=== PATIENT | male | born 1955 | race Caucasian/White ===

== ENCOUNTER 2018-02-11 17:39 | Outpatient (REF) | payer OTHER, SELFPAY ==
[2018-02-11 21:03] LABS: Anion Gap 10.3 mmol/L (3-11); BUN 25 mg/dL (7-18); CO2 24.7 mmol/L (21.0-32.0); CREATININE 1.18 mg/dL (0.70-1.30); Calcium 8.9 mg/dL (8.5-10.1); Chloride 104 mmol/L (98-107); Cholesterol 173 mg/dL (50-200); Glucose 88 mg/dL (70-100); HDL Cholesterol 74 mg/dL (40-60); LDL CHOLESTEROL 88 mg/dL (<100); Potassium 4.1 mmol/L (3.5-5.1); Sodium 139 mmol/L (136-145); Triglyceride 72 mg/dL (30-150)
[2018-02-15 11:11] LABS: PSA, Screening 0.4 ng/ml (0-4.5)
== END 2018-02-11 17:40 ==
LOC: NCHCN 17:39
PROVIDERS: PCP Specialist/Technologist Athletic Trainer; Visit Provider Specialist/Technologist Athletic Trainer
DX: Z00.00 Encounter for general adult medical examination without abnormal findings (principal); E78.5 Hyperlipidemia, unspecified; I10 Essential (primary) hypertension; Z12.5 Encounter for screening for malignant neoplasm of prostate
CPT/HCPCS: 80048; 80061; 83721; 84153

== ENCOUNTER 2018-05-15 07:17 | Emergency (ER) | payer OTHER, SELFPAY ==
[2018-05-15 07:21] VITALS: BP 132/64; PULSE 78; RESP 15; TEMP 36.6; O2SAT 99
--- NOTE | 2018-05-15 07:41 | W.ED.GENAD ---
Discharge Plan Disposition Patient Disposition: HOME Condition: Good Discharge Details Chief Complaint: Nk/Back Pain Clinical Impression: Lumbago Primary Care Provider: Tin Matthews ED Provider: Jason Hassan Home Meds and New Rx's Prescriptions: New acetaminophen [Mapap Extra Strength] 500 MG tablet 1,000 mg PO Q6H 5 Days Qty: 60 RF: 0 lidocaine 5 % adhesive patch,medicated 1 patch TP DAILY Qty: 5 RF: 0 ibuprofen [Motrin IB] 200 MG tablet 600 mg PO Q6H 5 Days Qty: 60 RF: 0 cyclobenzaprine 7.5 mg tablet 7.5 mg PO TID Qty: 21 RF: 0 No Action atorvastatin [Lipitor] 40 MG tablet 40 mg PO QPM RF: 0 aspirin [Aspir-81] 81 MG tablet,delayed release (DR/EC) 81 mg PO DAILY RF: 0 lisinopril 10 MG tablet 10 mg PO DAILY RF: 0 Discharge Instructions Instructions: Low Back Strain (ED) Additional Instructions: Please follow-up as soon as possible with your primary care provider for repeat assessment and outpatient MRI. If you notice any worsening of your symptoms, or any new symptoms such as loss of control of your bowels or bladder, numbness or tingling over your rectum, groin region, worsening of your back pain, weakness of your lower extremities, vomiting, diarrhea, fever, chills, shortness of breath, chest pain, numbness, weakness, or fainting , please return immediately to the emergency department for reevaluation. Please follow up with your primary care provider as soon as possible for reassessment and reevaluation. As always, it was a pleasure participating in your medical care today. Referrals: Tin Matthews [Primary Care Provider] - Medical Decision Making <Brian Singh MD - Last Filed: 05/15/18 07:58> Patient with low back pain for a couple of weeks with radiation of pain down both legs left greater than right. Prior history of back problems and sciatica also in the distant past. No neurologic complaints. No bladder or bowel dysfunction, normal strength, symmetrical reflexes, no sensory deficit. Abdomen is benign. He does have tenderness over the L3 area with palpation. He is already taking nonsteroidals this morning. We will add Flexeril. Will get CT scan of the lumbar spine. Patient care turned over to Dr. Hassan who will follow up on CT results and reevaluate the patient's pain level after treatment. <Jason Hassan, DO - Last Filed: 05/15/18 09:19> The case was signed out to be my my colleague Dr. Singh. We are pending imaging results at that time. Patient presents with 2 weeks of back pain. It occurred while putting on chains for his truck. Since then he has had gradual chronic back pain in his lower lumbar spine with radiation down his legs, worse with movement, improved by NSAIDs. He has no red flags of bowel or bladder incontinence, saddle anesthesia, or weakness of his lower extremities. Patient was given a Lidoderm patch here, Flexeril, and Tylenol, and here in the ED he has had a notable improvement of his symptoms. On my repeat examination he demonstrates mainly paraspinal tenderness, with minimal midline tenderness. The more severe pain is clearly muscular over the paraspinal muscles, worse on the left. He demonstrates normal reflexes normal sensation, normal rectal tone, normal perirectal sensation and a post void residual far less than 100. CT scan results demonstrate no acute fracture, and possible disc extrusion at L2/L3 versus artifact. Correlate with MRI if indicated with the patient's clear muscular component, as well as his lack of neurologic red flags, significant urinary retention, decreased rectal tone or sensation, and in the setting of normal reflexes normal sensation normal strength and improvement of his symptoms with NSAIDs and Lidoderm patch, his current clinical symptomatology at this time is clinically consistent with a musculoskeletal component, and clinically inconsistent with cauda equina syndrome requiring immediate surgical intervention. However I do feel that the patient would benefit from outpatient MRI on a nonemergent basis for further follow-up and differentiation of his chronic back pathology. I had a long discussion with the patient and his regarding the importance of medication, avoiding any heavy lifting, and long discussion regarding red flags for symptom changes that would merit a prompt return to the emergency department. We will also contact his PCP to set up close follow-up for outpatient MRI. I have extensively reviewed the treatment plan and discharge instructions with the patient and their family. I have addressed all patient concerns at this time. The patient and family was made aware of what symptoms to monitor for that would warrant a return to the emergency department. Discussed the plan with the patient and family, they demonstrate verbal understanding and agreement with our assessment and plan at this time. Focused repeat physical exam prior to discharge No severe midline tenderness to palpation over the CTLS spine. Normal ROM in flexion, extension, side bend, and rotation. Patient has +5 out of 5 strength in the lower extremities in dorsiflexion and plantarflexion, knee flexion and extension, hip flexion and extension. There is +2 over 2 dorsalis pedis pulses bilaterally. There is normal sensation to the skin with light touch at the foot, knee, and hip. Normal saddle sensation. Good sensation over the deep sural nerve area bilaterally. Rectal exam performed and demonstrates normal rectal tone with normal perirectal sensation radially in all directions. Reflexes are +2 over 4 in the patellar reflex bilaterally. Normal dorsiflexion of the great toes, normal plantar dorsiflexion. Dorsalis pedis and posterior tibial pulse +2 bilaterally. Patient ambulates well without any difficulty. TECHNIQUE: Axial computed tomography images of the lumbar spine without intravenous contrast. All CT scans at this facility use at least one of these dose optimization techniques: automated exposure control; mA and/or kV adjustment per patient size (includes targeted exams where dose is matched to clinical indication); or iterative reconstruction. Coronal and sagittal reformatted images were created and reviewed. COMPARISON: No relevant prior studies available. FINDINGS: The alignment of the lumbar spine is normal. The vertebral body heights are maintained. No acute fracture or subluxation. L1-2: Unremarkable. L2-3: There is a suggestion of a central disc extrusion although this could represent artifact. L3-4: Unremarkable. L4-5: Unremarkable. L5-S1: Degenerative disease with mild canal narrowing. IMPRESSION: 1. No fracture. 2. Possible disc extrusion at L2-3 versus artifact. Correlate with MRI if indicated. Dictated and Authenticated by: Rufino Tolentino MD. Ordering:JAQUAN MILLER MD HPI <Brian Singh MD - Last Filed: 05/15/18 07:58> General Mode of arrival: ambulatory. Date/Time Provider Initiated Documentation: 05/15/18 07:31. Limitations to Documentation: no limitations. Information obtained by: patient and family. HPI Narrative: Patient presents to ED with low back pain radiating down both legs. Initially tweaked his back a couple weeks ago while putting chains on his truck. He has since had worsening pain. Saw chiropractor last week which he thinks actually made it worse. He has difficulty moving especially bending or twisting. He has pain going down both legs to the knee posteriorly. Left is worse than right. He has no numbness or tingling. He has no bladder or bowel dysfunction. He has no abdominal pain. He has had back problems previously but not for some time. He has difficulty ambulating because of pain. He has been taking ibuprofen which had been working up until the last few days. He took 1200 mg of ibuprofen around 630 this morning. Related Data Home Medications Medication Instructions Recorded Confirmed aspirin [Aspir-81] 81 mg PO DAILY 05/26/17 05/15/18 atorvastatin [Lipitor] 40 mg PO QPM 05/26/17 05/15/18 lisinopril 10 mg PO DAILY 05/26/17 05/15/18 acetaminophen [Mapap Extra 1,000 mg PO Q6H 5 Days #60 tab 05/15/18 Strength] cyclobenzaprine 7.5 mg PO TID #21 tab 05/15/18 ibuprofen [Motrin Ib] 600 mg PO Q6H 5 Days #60 tab 05/15/18 lidocaine 1 patch TP DAILY #5 each 05/15/18 Previous Rx's Medication Instructions Recorded acetaminophen [Mapap Extra 1,000 mg PO Q6H 5 Days #60 tab 05/15/18 Strength] cyclobenzaprine 7.5 mg PO TID #21 tab 05/15/18 ibuprofen [Motrin Ib] 600 mg PO Q6H 5 Days #60 tab 05/15/18 lidocaine 1 patch TP DAILY #5 each 05/15/18 Allergies Allergy/AdvReac Type Severity Reaction Status Date / Time No Known Allergies Allergy Unverified 05/15/18 07:26 General Stated Complaint: Nk/Back Pain KATHIA: 4 Review of Systems <Brian Singh MD - Last Filed: 05/15/18 07:58> Constitutional Denies chills, Denies fever(s), Denies headache(s), Denies malaise, Denies night sweats, Denies weakness and Denies weight loss ENT Denies headache(s) and Denies neck pain Gastrointestinal Denies abdominal pain, Denies diarrhea, Denies nausea and Denies vomiting Genitourinary Denies dysuria, Denies flank pain, Denies urinary hesitancy, Denies urinary incontinence and Denies urinary urgency Musculoskeletal Reports abnormal gait, Reports back pain, Denies arthralgias, Denies muscle weakness, Denies neck pain, Denies numbness, Reports radiating pain into limb, Reports stiffness and Denies tingling Integumentary/Breasts Denies rash Neurologic Reports abnormal gait, Denies headache(s), Denies focal weakness, Denies numbness, Reports radicular pain, Denies sensory deficit, Denies tingling, Denies paresthesias and Denies weakness Exam <Brian Singh MD - Last Filed: 05/15/18 07:58> Const General: cooperative, uncomfortable and no acute distress Orientation: alert and oriented x3 HENMT Head: normocephalic and atraumatic Neck Neck: trachea midline and supple GI Palpation: soft, not firm, no guarding and nontender Back/Spine/Pelvis Cervical Spine: cervical ROM normal and No pain with cervical ROM Thoracic/Lumbar Spine: pain with thoraco-lumbar ROM, paraspinal tenderness, thoraco-lumbar ROM limited, No thoracic spinal tenderness, lumbar spinal tenderness and straight leg raise positive Skin Rashes: no rashes and other (irritation where thermal patches have been) Neuro General: alert, oriented x3, gait abnormal (limping with pain), no focal motor deficits and CN's II-XI intact bilaterally Sensory Exam: no sensory deficits noted DTR's: Rt Patellar: 3+, Lt Patellar: 3+, Rt Ankle: 1+ and Lt Ankle: 1+ Extrem General: normal to inspection, full ROM and no clubbing, cyanosis or edema Course <Brian Singh MD - Last Filed: 05/15/18 07:58> Vital Signs Temperature 97.9 F 05/15/18 07:21 Pulse 78 05/15/18 07:21 Respiratory Rate 15 05/15/18 07:21 Blood Pressure 132/64 05/15/18 07:21 Pulse Oximetry 99 05/15/18 07:21 Temperature 97.9 F 05/15/18 07:21 Temperature Source Temporal Artery Scan 05/15/18 07:21 Pulse 78 05/15/18 07:21 Respiratory Rate 15 05/15/18 07:21 Respiratory Effort Non-Labored 05/15/18 07:25 Blood Pressure 132/64 05/15/18 07:21 Blood Pressure Position Sitting 05/15/18 07:21 Pulse Oximetry 99 05/15/18 07:21 Oxygen Delivery Method Room Air 05/15/18 07:21 Oxygen Flow Rate 0 05/15/18 07:21 Pain Level 9 05/15/18 07:27
[2018-05-15] MEDS: Acetaminophen 500 MG TAB 1000 MG PO (07:46)
[2018-05-15] MEDS: Cyclobenzaprine 10 MG TAB PO (07:47)
[2018-05-15] MEDS: Lidocaine 5% Patch 1 PATCH TP (07:47)
--- NOTE | 2018-05-15 07:49 | DI.CT_ITS ---
SYMPTOMS/DIAGNOSIS: WORSENING BACK PAIN, TENDER MID LUMBAR SPINE X 2 WEEKS S/P PULLING INJURY CT SCAN OF THE LUMBAR SPINE: Multiple contiguous axial images of the lumbar spine were obtained. Sagittal and coronal reformatted images were evaluated on the Siemens workstation. There is normal alignment of the lumbar spine. No acute fractures or subluxations are seen. At L5-S1, there is disc space narrowing, vacuum disc and endplate osteophytes. No significant central spinal canal stenosis is seen. There is moderate bilateral neural foraminal narrowing. At L2-L3, there does appear to be a moderately large central disc herniation causing narrowing of the central spinal canal. No significant neural foraminal stenosis is seen. The remaining disc levels show no focal disc herniation, central spinal canal or neural foraminal stenosis. IMPRESSION: 1. Findings suspicious for moderately large central disc herniation at L2-L3. MRI is recommended for further evaluation. 2. Degenerative changes at L5-S1 causing moderate bilateral neural foraminal stenosis.
--- NOTE | 2018-05-15 07:49 | ED.GENADUL_ITS ---
Discharge Plan Disposition Patient Disposition: HOME Condition: Good Discharge Details Chief Complaint: Nk/Back Pain Clinical Impression: Lumbago Primary Care Provider: Tin Matthews ED Provider: Jason Hassan Home Meds and New Rx's Prescriptions: New acetaminophen [Mapap Extra Strength] 500 MG tablet 1,000 mg PO Q6H 5 Days Qty: 60 RF: 0 lidocaine 5 % adhesive patch,medicated 1 patch TP DAILY Qty: 5 RF: 0 ibuprofen [Motrin IB] 200 MG tablet 600 mg PO Q6H 5 Days Qty: 60 RF: 0 cyclobenzaprine 7.5 mg tablet 7.5 mg PO TID Qty: 21 RF: 0 No Action atorvastatin [Lipitor] 40 MG tablet 40 mg PO QPM RF: 0 aspirin [Aspir-81] 81 MG tablet,delayed release (DR/EC) 81 mg PO DAILY RF: 0 lisinopril 10 MG tablet 10 mg PO DAILY RF: 0 Discharge Instructions Instructions: Low Back Strain (ED) Additional Instructions: Please follow-up as soon as possible with your primary care provider for repeat assessment and outpatient MRI. If you notice any worsening of your symptoms, or any new symptoms such as loss of control of your bowels or bladder, numbness or tingling over your rectum, groin region, worsening of your back pain, weakness of your lower extremities, vomiting, diarrhea, fever, chills, shortness of breath, chest pain, numbness, weakness, or fainting , please return immediately to the emergency department for reevaluation. Please follow up with your primary care provider as soon as possible for reassessment and reevaluation. As always, it was a pleasure participating in your medical care today. Referrals: Tin Matthews [Primary Care Provider] - Medical Decision Making <Brian Singh MD - Last Filed: 05/15/18 07:58> Patient with low back pain for a couple of weeks with radiation of pain down both legs left greater than right. Prior history of back problems and sciatica also in the distant past. No neurologic complaints. No bladder or bowel dysfunction, normal strength, symmetrical reflexes, no sensory deficit. Abdomen is benign. He does have tenderness over the L3 area with palpation. He is already taking nonsteroidals this morning. We will add Flexeril. Will get CT scan of the lumbar spine. Patient care turned over to Dr. Hassan who will follow up on CT results and reevaluate the patient's pain level after treatment. <Jason Hassan, DO - Last Filed: 05/15/18 09:19> The case was signed out to be my my colleague Dr. Singh. We are pending imaging results at that time. Patient presents with 2 weeks of back pain. It occurred while putting on chains for his truck. Since then he has had gradual chronic back pain in his lower lumbar spine with radiation down his legs, worse with movement, improved by NSAIDs. He has no red flags of bowel or bladder incontinence, saddle anesthesia, or weakness of his lower extremities. Patient was given a Lidoderm patch here, Flexeril, and Tylenol, and here in the ED he has had a notable improvement of his symptoms. On my repeat examination he demonstrates mainly paraspinal tenderness, with minimal midline tenderness. The more severe pain is clearly muscular over the paraspinal muscles, worse on the left. He demonstrates normal reflexes normal sensation, normal rectal tone , normal perirectal sensation and a post void residual far less than 100. CT scan results demonstrate no acute fracture, and possible disc extrusion at L2/ L3 versus artifact. Correlate with MRI if indicated with the patient's clear muscular component, as well as his lack of neurologic red flags, significant urinary retention, decreased rectal tone or sensation, and in the setting of normal reflexes normal sensation normal strength and improvement of his symptoms with NSAIDs and Lidoderm patch, his current clinical symptomatology at this time is clinically consistent with a musculoskeletal component, and clinically inconsistent with cauda equina syndrome requiring immediate surgical intervention. However I do feel that the patient would benefit from outpatient MRI on a nonemergent basis for further follow-up and differentiation of his chronic back pathology. I had a long discussion with the patient and his regarding the importance of medication, avoiding any heavy lifting, and long discussion regarding red flags for symptom changes that would merit a prompt return to the emergency department. We will also contact his PCP to set up close follow-up for outpatient MRI. I have extensively reviewed the treatment plan and discharge instructions with the patient and their family. I have addressed all patient concerns at this time. The patient and family was made aware of what symptoms to monitor for that would warrant a return to the emergency department. Discussed the plan with the patient and family, they demonstrate verbal understanding and agreement with our assessment and plan at this time. Focused repeat physical exam prior to discharge No severe midline tenderness to palpation over the CTLS spine. Normal ROM in flexion, extension, side bend, and rotation. Patient has +5 out of 5 strength in the lower extremities in dorsiflexion and plantarflexion, knee flexion and extension, hip flexion and extension. There is +2 over 2 dorsalis pedis pulses bilaterally. There is normal sensation to the skin with light touch at the foot , knee, and hip. Normal saddle sensation. Good sensation over the deep sural nerve area bilaterally. Rectal exam performed and demonstrates normal rectal tone with normal perirectal sensation radially in all directions. Reflexes are + 2 over 4 in the patellar reflex bilaterally. Normal dorsiflexion of the great toes, normal plantar dorsiflexion. Dorsalis pedis and posterior tibial pulse + 2 bilaterally. Patient ambulates well without any difficulty. TECHNIQUE: Axial computed tomography images of the lumbar spine without intravenous contrast. All CT scans at this facility use at least one of these dose optimization techniques: automated exposure control; mA and/or kV adjustment per patient size (includes targeted exams where dose is matched to clinical indication); or iterative reconstruction. Coronal and sagittal reformatted images were created and reviewed. COMPARISON: No relevant prior studies available. FINDINGS: The alignment of the lumbar spine is normal. The vertebral body heights are maintained. No acute fracture or subluxation. L1-2: Unremarkable. L2-3: There is a suggestion of a central disc extrusion although this could represent artifact. L3-4: Unremarkable. L4-5: Unremarkable. L5-S1: Degenerative disease with mild canal narrowing. IMPRESSION: 1. No fracture. 2. Possible disc extrusion at L2-3 versus artifact. Correlate with MRI if indicated. Dictated and Authenticated by: Rufino Tolentino MD. Ordering:JAQUAN MILLER MD HPI <Brian Singh MD - Last Filed: 05/15/18 07:58> General Mode of arrival: ambulatory . Date/Time Provider Initiated Documentation: 05/15/18 07:31 . Limitations to Documentation: no limitations . Information obtained by: patient and family . HPI Narrative: Patient presents to ED with low back pain radiating down both legs. Initially tweaked his back a couple weeks ago while putting chains on his truck. He has since had worsening pain. Saw chiropractor last week which he thinks actually made it worse. He has difficulty moving especially bending or twisting. He has pain going down both legs to the knee posteriorly. Left is worse than right. He has no numbness or tingling. He has no bladder or bowel dysfunction. He has no abdominal pain. He has had back problems previously but not for some time. He has difficulty ambulating because of pain. He has been taking ibuprofen which had been working up until the last few days. He took 1200 mg of ibuprofen around 630 this morning. Related Data Home Medications Medication Instructions Recorded Confirmed aspirin [Aspir-81] 81 mg PO DAILY 05/26/17 05/15/18 atorvastatin [Lipitor] 40 mg PO QPM 05/26/17 05/15/18 lisinopril 10 mg PO DAILY 05/26/17 05/15/18 acetaminophen [Mapap Extra 1,000 mg PO Q6H 5 Days #60 tab 05/15/18 Strength] cyclobenzaprine 7.5 mg PO TID #21 tab 05/15/18 ibuprofen [Motrin Ib] 600 mg PO Q6H 5 Days #60 tab 05/15/18 lidocaine 1 patch TP DAILY #5 each 05/15/18 Previous Rx's Medication Instructions Recorded acetaminophen [Mapap Extra 1,000 mg PO Q6H 5 Days #60 tab 05/15/18 Strength] cyclobenzaprine 7.5 mg PO TID #21 tab 05/15/18 ibuprofen [Motrin Ib] 600 mg PO Q6H 5 Days #60 tab 05/15/18 lidocaine 1 patch TP DAILY #5 each 05/15/18 Allergies Allergy/AdvReac Type Severity Reaction Status Date / Time No Known Allergies Allergy Unverified 05/15/18 07:26 General Stated Complaint: Nk/Back Pain KATHIA: 4 Review of Systems <Brian Singh MD - Last Filed: 05/15/18 07:58> Constitutional Denies chills, Denies fever(s), Denies headache(s), Denies malaise, Denies night sweats, Denies weakness and Denies weight loss ENT Denies headache(s) and Denies neck pain Gastrointestinal Denies abdominal pain, Denies diarrhea, Denies nausea and Denies vomiting Genitourinary Denies dysuria, Denies flank pain, Denies urinary hesitancy, Denies urinary incontinence and Denies urinary urgency Musculoskeletal Reports abnormal gait, Reports back pain, Denies arthralgias, Denies muscle weakness, Denies neck pain, Denies numbness, Reports radiating pain into limb, Reports stiffness and Denies tingling Integumentary/Breasts Denies rash Neurologic Reports abnormal gait, Denies headache(s), Denies focal weakness, Denies numbness, Reports radicular pain, Denies sensory deficit, Denies tingling, Denies paresthesias and Denies weakness Exam <Brian Singh MD - Last Filed: 05/15/18 07:58> Const General: cooperative, uncomfortable and no acute distress Orientation: alert and oriented x3 HENMT Head: normocephalic and atraumatic Neck Neck: trachea midline and supple GI Palpation: soft, not firm, no guarding and nontender Back/Spine/Pelvis Cervical Spine: cervical ROM normal and No pain with cervical ROM Thoracic/Lumbar Spine: pain with thoraco-lumbar ROM, paraspinal tenderness, thoraco-lumbar ROM limited, No thoracic spinal tenderness, lumbar spinal tenderness and straight leg raise positive Skin Rashes: no rashes and other (irritation where thermal patches have been) Neuro General: alert, oriented x3, gait abnormal (limping with pain), no focal motor deficits and CN's II-XI intact bilaterally Sensory Exam: no sensory deficits noted DTR's: Rt Patellar: 3+, Lt Patellar: 3+, Rt Ankle: 1+ and Lt Ankle: 1+ Extrem General: normal to inspection, full ROM and no clubbing, cyanosis or edema Course <Brian Singh MD - Last Filed: 05/15/18 07:58> Vital Signs Temperature 97.9 F 05/15/18 07:21 Pulse 78 05/15/18 07:21 Respiratory Rate 15 05/15/18 07:21 Blood Pressure 132/64 05/15/18 07:21 Pulse Oximetry 99 05/15/18 07:21 Temperature 97.9 F 05/15/18 07:21 Temperature Source Temporal Artery Scan 05/15/18 07:21 Pulse 78 05/15/18 07:21 Respiratory Rate 15 05/15/18 07:21 Respiratory Effort Non-Labored 05/15/18 07:25 Blood Pressure 132/64 05/15/18 07:21 Blood Pressure Position Sitting 05/15/18 07:21 Pulse Oximetry 99 05/15/18 07:21 Oxygen Delivery Method Room Air 05/15/18 07:21 Oxygen Flow Rate 0 05/15/18 07:21 Pain Level 9 05/15/18 07:27
--- NOTE | 2018-05-15 08:49 | DI.VRAD_ITS ---
EXAM: CT Lumbar Spine Without Intravenous Contrast EXAM DATE/TIME: 05/15/2018 7:50 AM CLINICAL HISTORY: 62 years old, male; Pain; Low back pain; Patient HX: Lbp x 2 weeks, pulling injury. TECHNIQUE: Axial computed tomography images of the lumbar spine without intravenous contrast. All CT scans at this facility use at least one of these dose optimization techniques: automated exposure control; mA and/or kV adjustment per patient size (includes targeted exams where dose is matched to clinical indication); or iterative reconstruction. Coronal and sagittal reformatted images were created and reviewed. COMPARISON: No relevant prior studies available. FINDINGS: The alignment of the lumbar spine is normal. The vertebral body heights are maintained. No acute fracture or subluxation. L1-2: Unremarkable. L2-3: There is a suggestion of a central disc extrusion although this could represent artifact. L3-4: Unremarkable. L4-5: Unremarkable. L5-S1: Degenerative disease with mild canal narrowing. IMPRESSION: 1. No fracture. 2. Possible disc extrusion at L2-3 versus artifact. Correlate with MRI if indicated. Dictated and Authenticated by: Rufino Tolentino MD. Ordering:JAQUAN MILLER MD
[2018-05-15] MEDS: Dexamethasone 4 MG TAB 12 MG PO (09:12)
[2018-05-15 09:35] VITALS: BP 129/65; PULSE 72; RESP 16; O2SAT 99
== END 2018-05-15 09:35 | disposition home or self-care (01) ==
LOC: ER 09:37
PROVIDERS: Emergency Provider Student in an Organized Health Care Education/Training Program; PCP Specialist/Technologist Athletic Trainer
DX: M54.5 Low back pain (principal); X50.9XXA Other and unspecified overexertion or strenuous movements or postures, initial encounter; I10 Essential (primary) hypertension
CPT/HCPCS: 99284; 72131; J8540

== ENCOUNTER 2018-05-16 04:58 | Emergency (ER) | payer OTHER, SELFPAY ==
[2018-05-16 05:04] VITALS: BP 130/62; PULSE 81; RESP 18; TEMP 36.7; O2SAT 100
--- NOTE | 2018-05-16 05:04 | W.ED.GENAD ---
Discharge Plan Disposition Patient Disposition: HOME Condition: Good Discharge Details Chief Complaint: Recheck Clinical Impression: Lumbar back pain with radiculopathy affecting left lower extremity Primary Care Provider: Tin Matthews ED Provider: Brian Singh [place] Meds and New Rx's Prescriptions: New prednisone 20 mg tablet 40 mg PO DAILY Qty: 6 RF: 0 hydrocodone-acetaminophen 10-325 mg tablet 1 tab PO Q6H PRN (Reason: pain) Qty: 10 RF: 0 Continue atorvastatin [Lipitor] 40 MG tablet 40 mg PO QPM RF: 0 aspirin [Aspir-81] 81 MG tablet,delayed release (DR/EC) 81 mg PO DAILY RF: 0 lisinopril 10 MG tablet 10 mg PO DAILY RF: 0 lidocaine 5 % adhesive patch,medicated 1 patch TP DAILY Qty: 5 RF: 0 cyclobenzaprine 7.5 mg tablet 7.5 mg PO TID Qty: 21 RF: 0 Discontinued acetaminophen [Mapap Extra Strength] 500 MG tablet 1,000 mg PO Q6H 5 Days Qty: 60 RF: 0 ibuprofen [Motrin IB] 200 MG tablet 600 mg PO Q6H 5 Days Qty: 60 RF: 0 Discharge Instructions Instructions: Lumbar Radiculopathy (ED) Additional Instructions: Contact your primary care physician in the morning to arrange for outpatient MRI and prior authorization. Hold the acetaminophen and the ibuprofen while on the prednisone and Vicodin. Return to ED if any neurologic changes such as numbness, weakness, bladder or bowel dysfunction. Referrals: Tin Matthews [Primary Care Provider] - Medical Decision Making Patient remains neurologically intact. There is no change in his neuro status. Sensation is still present in the perineum. Deep tendon reflexes are the same as yesterday. Strength is the same. Does not require emergent MRI scanning or neurosurgical evaluation. Does not have cauda equina at this point. He had been given Decadron 1 dose yesterday. We will repeat prednisone this morning. We will give Vicodin orally. Will then reevaluate pain control. 6:45 AM?patient feeling much better after the Vicodin. He was able to ambulate to the bathroom himself. His fingerstick was fine. His post-void residual was a little high just over 300. However, the residual was done almost half an hour after voiding. He had no incontinence. No difficulty urinating. He knew he had to urinate. Still not overly concerned that he has symptoms of cauda equina. We did discuss this at length. He would like to try to go home and call his primary care morning to arrange for outpatient MRI. He understands to return if any increasing pain, weakness, numbness, bowel or bladder issues. Patient will be asked to stop his ibuprofen and his acetaminophen for now. He will go home with 3 days of prednisone. We will put him on Vicodin for pain for the next 1-2 days. We did discuss the risk of use of narcotics. I did review him in the [place] prescription monitoring system and there have been no scripts in the last year. State information sheet given. Consent signed. HPI General Mode of arrival: wheelchair. Date/Time Provider Initiated Documentation: 05/16/18 05:04. Limitations to Documentation: no limitations. Information obtained by: patient and old records reviewed. HPI Narrative: Patient returns this morning with worsening back pain and radiation of pain into the left leg. Seen by me yesterday for same. CT lumbar spine was fairly unremarkable though some question of L2/L3 disc protrusion. He was neurologically intact and was sent home with Flexeril, Lidoderm, Motrin, Tylenol. Pain has got worse overnight. He has almost no radiation of pain into the right leg at this point. Has worsening radiation of pain into the left leg. Continues to have no bladder or bowel dysfunction. He has no numbness or tingling. He is limited by pain not by weakness. He has no abdominal pain. He has no fever. Related Data Home Medications Medication Instructions Recorded Confirmed aspirin [Aspir-81] 81 mg PO DAILY 05/26/17 05/16/18 atorvastatin [Lipitor] 40 mg PO QPM 05/26/17 05/16/18 lisinopril 10 mg PO DAILY 05/26/17 05/16/18 cyclobenzaprine 7.5 mg PO TID #21 tab 05/15/18 05/16/18 lidocaine 1 patch TP DAILY #5 each 05/15/18 05/16/18 hydrocodone-acetaminophen 1 tab PO Q6H PRN #10 tab 05/16/18 prednisone 40 mg PO DAILY #6 tab 05/16/18 Previous Rx's Medication Instructions Recorded cyclobenzaprine 7.5 mg PO TID #21 tab 05/15/18 lidocaine 1 patch TP DAILY #5 each 05/15/18 hydrocodone-acetaminophen 1 tab PO Q6H PRN #10 tab 05/16/18 prednisone 40 mg PO DAILY #6 tab 05/16/18 Allergies Allergy/AdvReac Type Severity Reaction Status Date / Time No Known Allergies Allergy Unverified 05/16/18 05:10 General KATHIA: 4 Review of Systems Constitutional Denies chills, Denies fever(s), Denies headache(s) and Denies weakness ENT Denies otalgia, Denies headache(s), Denies nasal congestion, Denies sinus pressure and Denies sore throat Cardiovascular Denies chest pain, Denies diaphoresis, Denies syncope, Denies edema, Denies palpitations and Denies dyspnea Respiratory Denies cough and Denies dyspnea Gastrointestinal Denies abdominal pain, Denies constipation, Denies diarrhea, Denies nausea and Denies vomiting Genitourinary Denies hematuria, Denies dysuria and Denies flank pain Musculoskeletal Reports back pain, Reports limited range of motion, Denies muscle weakness, Denies numbness, Reports radiating pain into limb and Denies tingling Integumentary/Breasts Denies rash Neurologic Denies syncope, Denies headache(s), Denies focal weakness, Denies numbness, Reports radicular pain, Denies sensory deficit, Denies tingling, Denies paresthesias and Denies weakness Endocrine Denies palpitations COUNTS INCLUDE 234 BEDS AT THE [facility] Medical History HTN (hypertension) (Chronic) Hypercholesterolemia (Chronic) Social History Smoking/Tobacco Use Status: Former Tobacco Use Social History Smoking/Tobacco Use Status: Former Tobacco Use Exam Const General: cooperative and comfortable Orientation: alert and oriented x3 HENMT Head: normocephalic and atraumatic Neck Neck: full ROM, trachea midline and supple GI Inspection: normal to inspection Palpation: soft, not firm, no guarding and nontender Back/Spine/Pelvis Thoracic/Lumbar Spine: pain with thoraco-lumbar ROM, paraspinal tenderness, thoraco-lumbar ROM limited and straight leg raise positive Skin General skin exam: no rashes or lesions noted Neuro General: alert, oriented x3, normal light touch, pain and propioception, no focal motor deficits and CN's II-XI intact bilaterally Sensory Exam: no sensory deficits noted DTR's: Rt Patellar: 3+, Lt Patellar: 3+, Rt Ankle: 1+ and Lt Ankle: 1+ Extrem General: normal to inspection and full ROM (except for lifting legs off bed causing pain in back and limiting )
--- NOTE | 2018-05-16 05:26 | ED.GENADUL_ITS ---
Discharge Plan Disposition Patient Disposition: HOME Condition: Good Discharge Details Chief Complaint: Recheck Clinical Impression: Lumbar back pain with radiculopathy affecting left lower extremity Primary Care Provider: Tin Matthews ED Provider: Brian Singh [place] Meds and New Rx's Prescriptions: New prednisone 20 mg tablet 40 mg PO DAILY Qty: 6 RF: 0 hydrocodone-acetaminophen 10-325 mg tablet 1 tab PO Q6H PRN (Reason: pain) Qty: 10 RF: 0 Continue atorvastatin [Lipitor] 40 MG tablet 40 mg PO QPM RF: 0 aspirin [Aspir-81] 81 MG tablet,delayed release (DR/EC) 81 mg PO DAILY RF: 0 lisinopril 10 MG tablet 10 mg PO DAILY RF: 0 lidocaine 5 % adhesive patch,medicated 1 patch TP DAILY Qty: 5 RF: 0 cyclobenzaprine 7.5 mg tablet 7.5 mg PO TID Qty: 21 RF: 0 Discontinued acetaminophen [Mapap Extra Strength] 500 MG tablet 1,000 mg PO Q6H 5 Days Qty: 60 RF: 0 ibuprofen [Motrin IB] 200 MG tablet 600 mg PO Q6H 5 Days Qty: 60 RF: 0 Discharge Instructions Instructions: Lumbar Radiculopathy (ED) Additional Instructions: Contact your primary care physician in the morning to arrange for outpatient MRI and prior authorization. Hold the acetaminophen and the ibuprofen while on the prednisone and Vicodin. Return to ED if any neurologic changes such as numbness, weakness, bladder or bowel dysfunction. Referrals: Tin Matthews [Primary Care Provider] - Medical Decision Making Patient remains neurologically intact. There is no change in his neuro status. Sensation is still present in the perineum. Deep tendon reflexes are the same as yesterday. Strength is the same. Does not require emergent MRI scanning or neurosurgical evaluation. Does not have cauda equina at this point. He had been given Decadron 1 dose yesterday. We will repeat prednisone this morning. We will give Vicodin orally. Will then reevaluate pain control. 6:45 AM?patient feeling much better after the Vicodin. He was able to ambulate to the bathroom himself. His fingerstick was fine. His post-void residual was a little high just over 300. However, the residual was done almost half an hour after voiding. He had no incontinence. No difficulty urinating. He knew he had to urinate. Still not overly concerned that he has symptoms of cauda equina. We did discuss this at length. He would like to try to go home and call his primary care morning to arrange for outpatient MRI. He understands to return if any increasing pain, weakness, numbness, bowel or bladder issues. Patient will be asked to stop his ibuprofen and his acetaminophen for now. He will go home with 3 days of prednisone. We will put him on Vicodin for pain for the next 1-2 days. We did discuss the risk of use of narcotics. I did review him in the [place] prescription monitoring system and there have been no scripts in the last year. State information sheet given. Consent signed. HPI General Mode of arrival: wheelchair . Date/Time Provider Initiated Documentation: 05/16/18 05:04 . Limitations to Documentation: no limitations . Information obtained by: patient and old records reviewed . HPI Narrative: Patient returns this morning with worsening back pain and radiation of pain into the left leg. Seen by me yesterday for same. CT lumbar spine was fairly unremarkable though some question of L2/L3 disc protrusion. He was neurologically intact and was sent home with Flexeril, Lidoderm, Motrin, Tylenol. Pain has got worse overnight. He has almost no radiation of pain into the right leg at this point. Has worsening radiation of pain into the left leg. Continues to have no bladder or bowel dysfunction. He has no numbness or tingling. He is limited by pain not by weakness. He has no abdominal pain. He has no fever. Related Data Home Medications Medication Instructions Recorded Confirmed aspirin [Aspir-81] 81 mg PO DAILY 05/26/17 05/16/18 atorvastatin [Lipitor] 40 mg PO QPM 05/26/17 05/16/18 lisinopril 10 mg PO DAILY 05/26/17 05/16/18 cyclobenzaprine 7.5 mg PO TID #21 tab 05/15/18 05/16/18 lidocaine 1 patch TP DAILY #5 each 05/15/18 05/16/18 hydrocodone-acetaminophen 1 tab PO Q6H PRN #10 tab 05/16/18 prednisone 40 mg PO DAILY #6 tab 05/16/18 Previous Rx's Medication Instructions Recorded cyclobenzaprine 7.5 mg PO TID #21 tab 05/15/18 lidocaine 1 patch TP DAILY #5 each 05/15/18 hydrocodone-acetaminophen 1 tab PO Q6H PRN #10 tab 05/16/18 prednisone 40 mg PO DAILY #6 tab 05/16/18 Allergies Allergy/AdvReac Type Severity Reaction Status Date / Time No Known Allergies Allergy Unverified 05/16/18 05:10 General KATHIA: 4 Review of Systems Constitutional Denies chills, Denies fever(s), Denies headache(s) and Denies weakness ENT Denies otalgia, Denies headache(s), Denies nasal congestion, Denies sinus pressure and Denies sore throat Cardiovascular Denies chest pain, Denies diaphoresis, Denies syncope, Denies edema, Denies palpitations and Denies dyspnea Respiratory Denies cough and Denies dyspnea Gastrointestinal Denies abdominal pain, Denies constipation, Denies diarrhea, Denies nausea and Denies vomiting Genitourinary Denies hematuria, Denies dysuria and Denies flank pain Musculoskeletal Reports back pain, Reports limited range of motion, Denies muscle weakness, Denies numbness, Reports radiating pain into limb and Denies tingling Integumentary/Breasts Denies rash Neurologic Denies syncope, Denies headache(s), Denies focal weakness, Denies numbness, Reports radicular pain, Denies sensory deficit, Denies tingling, Denies paresthesias and Denies weakness Endocrine Denies palpitations [facility] Medical History HTN (hypertension) (Chronic) Hypercholesterolemia (Chronic) Social History Smoking/Tobacco Use Status: Former Tobacco Use Social History Smoking/Tobacco Use Status: Former Tobacco Use Exam Const General: cooperative and comfortable Orientation: alert and oriented x3 HENMT Head: normocephalic and atraumatic Neck Neck: full ROM, trachea midline and supple GI Inspection: normal to inspection Palpation: soft, not firm, no guarding and nontender Back/Spine/Pelvis Thoracic/Lumbar Spine: pain with thoraco-lumbar ROM, paraspinal tenderness, thoraco-lumbar ROM limited and straight leg raise positive Skin General skin exam: no rashes or lesions noted Neuro General: alert, oriented x3, normal light touch, pain and propioception, no focal motor deficits and CN's II-XI intact bilaterally Sensory Exam: no sensory deficits noted DTR's: Rt Patellar: 3+, Lt Patellar: 3+, Rt Ankle: 1+ and Lt Ankle: 1+ Extrem General: normal to inspection and full ROM (except for lifting legs off bed causing pain in back and limiting )
[2018-05-16] MEDS: HYDROcodone 10/Acetaminophen 325 TAB PO (05:29)
[2018-05-16] MEDS: predniSONE 20 MG TAB 40 MG PO (05:31)
[2018-05-16 06:55] VITALS: BP 135/70; PULSE 69; RESP 16; O2SAT 98
== END 2018-05-16 06:54 | disposition home or self-care (01) ==
PROVIDERS: Emergency Provider Emergency Medicine; PCP Specialist/Technologist Athletic Trainer
DX: M54.16 Radiculopathy, lumbar region (principal); I10 Essential (primary) hypertension
CPT/HCPCS: 36416; 82962; 99283; J3490; J7512

== ENCOUNTER 2018-05-18 11:10 | Outpatient (CLI) | payer OTHER, SELFPAY ==
--- NOTE | 2018-05-18 10:37 | DI.RAD_ITS ---
SYMPTOM/DIAGNOSIS: H/O MEDIA DIRECTOR, MRI CLEARANCE ORBITS: Frontal and lateral views were obtained. No radiopaque foreign bodies are seen in the orbits.
--- NOTE | 2018-05-18 11:40 | DI.MRI_ITS ---
SYMPTOM/DIAGNOSIS:F/U CT LOWER BACK PAIN MRI LUMBAR SPINE: Routine noncontrast examination was performed. Comparison CT scan 05/15/18 At L5-S1, there is disc desiccation and a diffuse disc bulge. There are degenerative changes of the facets. No significant central spinal canal stenosis is seen. There is mild compression of the right S-1 nerve root. Mild narrowing of the neural foramen is seen bilaterally but no compression of the exiting nerve roots is seen. At 4-L5 there are degenerative changes of the facets. No focal disc herniation or central spinal canal or neuroforaminal stenosis is seen. At L3-L4 there are degenerative changes of the facets. No focal disc herniation or central spinal canal stenosis is seen. No significant neuroforaminal stenosis is present. At L2-L3 there is a large central disc herniation. There are degenerative changes of the facets. There is mild narrowing of the central spinal canal. Mild narrowing of the neural foramen is seen bilaterally but no compression of the exiting nerve root at this level. There is however, compression of the L3 nerve roots bilaterally secondary to compression involving the lateral recesses bilaterally. At L1-L2 there is a mild diffuse disc bulge but no central spinal canal stenosis or neuroforaminal stenosis is seen. There does appear to be a small central disc herniation at this level. IMPRESSION: 1. Large central disc herniation at L2-L3 causing obstruction of the lateral recesses bilaterally and compression of the L3 nerve roots bilaterally. Central spinal canal stenosis does result. 2. Small central disc herniation at L1-L2 but no nerve root compression or significant central spinal canal stenosis seen. 3. At L5-S1 degenerative disc disease with a diffuse disc bulge. There is mild compression of the right S-1 nerve root. Mild narrowing of the neural foramen is seen bilaterally but no significant stenosis of the exiting nerve roots is noted.
== END 2018-05-18 11:30 ==
PROVIDERS: PCP Specialist/Technologist Athletic Trainer; Visit Provider Student in an Organized Health Care Education/Training Program
DX: M54.5 Low back pain (principal); M51.17 Intervertebral disc disorders with radiculopathy, lumbosacral region; M51.26 Other intervertebral disc displacement, lumbar region
CPT/HCPCS: 70030; 72148

== ENCOUNTER 2018-05-18 11:43 | Emergency (ER) | payer OTHER, SELFPAY ==
[2018-05-18 11:48] VITALS: BP 144/79; PULSE 74; RESP 16; TEMP 37.2; O2SAT 94
--- NOTE | 2018-05-18 13:22 | W.ED.GENAD ---
Discharge Plan Disposition Patient Disposition: HOME Condition: Good Discharge Details Chief Complaint: Nk/Back Pain Clinical Impression: Back pain, Radiculopathy Primary Care Provider: Tin Matthews ED Provider: Jason Hassan Home Meds and New Rx's Prescriptions: New gabapentin [Neurontin] 300 MG capsule 300 mg PO TID Qty: 90 RF: 0 hydrocodone-acetaminophen [[place]] 7.5-325 mg tablet 1 tab PO Q6H Qty: 4 RF: 0 lidocaine [Lidoderm] 1 PATCH patch 1 patch Topical Q24H Qty: 4 RF: 0 No Action atorvastatin [Lipitor] 40 MG tablet 40 mg PO QPM RF: 0 aspirin [Aspir-81] 81 MG tablet,delayed release (DR/EC) 81 mg PO DAILY RF: 0 lisinopril 10 MG tablet 20 mg PO DAILY RF: 0 lidocaine 5 % adhesive patch,medicated 1 patch TP DAILY Qty: 5 RF: 0 cyclobenzaprine 7.5 mg tablet 7.5 mg PO TID Qty: 21 RF: 0 prednisone 20 mg tablet 40 mg PO DAILY Qty: 6 RF: 0 hydrocodone-acetaminophen 10-325 mg tablet 1 tab PO Q6H PRN (Reason: pain) Qty: 10 RF: 0 Discharge Instructions Instructions: Back Pain (ED) Additional Instructions: Please take medication as directed. Please follow-up with your primary care provider at your scheduled appointment tomorrow for referral to the [facility] spine Center. If you notice any worsening of your symptoms, or any new symptoms such as vomiting, numbness or tingling in your groin, anesthesia of your lower extremities, weakness of your lower extremities, bowel or bladder incontinence diarrhea, fever, chills, shortness of breath, chest pain, numbness, weakness, or fainting , please return immediately to the emergency department for reevaluation. Please follow up with your primary care provider as soon as possible for reassessment and reevaluation. As always, it was a pleasure participating in your medical care today. Referrals: Tin Matthews [Primary Care Provider] - Discharge Data Discharge Date/Time-TO BE ENTERED AT DEPARTURE: 05/18/18 13:45 Medical Decision Making This is a very pleasant 62-year-old male who was seen and assessed here 72 hours ago for back pain, CT scan at that time showed a small protrusion in the L3 space versus artifact. He had no red flags for cord compression syndrome at that time. He was started on NSAIDs, Lidoderm patch, he was seen and assessed again the next day, with slight burning over his anterior thighs which was a change but no other acute changes. He continues to demonstrate no red flags. He was started on steroids at that time. Outpatient MRI was scheduled, and he comes in today for evaluation after MRI. He denies any other significant acute changes. MRI results demonstrates compression on the L3 nerve roots, no evidence of central cord compression. No other significant abnormalities. Patient continues to demonstrate a reassuring physical exam with no evidence of severe retention, as he is followed currently retaining roughly 143 mL's. He shows no signs of bowel or bladder incontinence. He continues to demonstrate normal strength, normal sensation, normal reflexes. I did contact Dr. Goldberg and he has no additional emergent recommendations. He does recommend that the patient follow-up on an outpatient basis with the spine center at [facility]. We will start the patient on gabapentin. We have contacted the spine center and set up an outpatient follow-up/referral. We discussed red flags which to return the patient understands. Pain is well controlled at this time. He is requesting a few more [place]'s, I do think this is reasonable, however we did have a 15-minute discussion on the addiction profile for narcotics, as well as the importance of avoiding them as much as possible and only use the main as necessary. He has a follow-up appointment with his primary care provider in the next 48 hours and I recommended he reassess narcotics at that point. His [place] prescription monitoring system demonstrates no other significant recent refills, aside for what was prescribed here. We discussed red flags which to immediately return, having a low threshold for return, and the importance of close follow-up. I have extensively reviewed the treatment plan and discharge instructions with the patient and their family. I have addressed all patient concerns at this time. The patient and family was made aware of what symptoms to monitor for that would warrant a return to the emergency department. Discussed the plan with the patient and family, they demonstrate verbal understanding and agreement with our assessment and plan at this time. HPI General Date/Time Provider Initiated Documentation: 05/18/18 11:59. HPI Narrative: This is a 62-year-old male presents with 2 weeks of back pain. It occurred while putting on chains for his truck. Since then he has had gradual chronic back pain in his lower lumbar spine with radiation down his legs, worse with movement, improved by NSAIDs. He has no red flags of bowel or bladder incontinence, saddle anesthesia, or weakness of his lower extremities. Patient was initially seen and assessed here in the emergency department by my colleague Dr. Singh 3 days ago, where he was given a Lidoderm patch here, Flexeril, and Tylenol and here in the ED he has had a notable improvement of his symptoms. He demonstrated normal reflexes normal sensation, normal rectal tone, normal perirectal sensation and a post void residual far less than 100. CT scan results demonstrate no acute fracture, and possible disc extrusion at L2/L3 versus artifact. Correlate with MRI if indicated with the patient's clear muscular component, as well as his lack of neurologic red flags, significant urinary retention, decreased rectal tone or sensation, and in the setting of normal reflexes normal sensation normal strength and improvement of his symptoms with NSAIDs and Lidoderm patch, his current clinical symptomatology at that time was clinically consistent with a musculoskeletal component, and clinically inconsistent with cauda equina syndrome requiring immediate surgical intervention. The patient was discharged, with close follow-up with a primary care provider and close MRI follow-up. The patient's symptoms slightly worsened with burning over the anterior component of his thighs, but no other red flags. He had no bowel or bladder incontinence. He had a bladder scan that was performed which demonstrated slightly increased retention compared to before but no other abnormalities. He was discharged home with MRI follow-up. He presents here today for recommendations after MRI. Patient denies any significant change in his symptoms, he denies any new red flags of bowel or bladder incontinence, lower extremity weakness, saddle anesthesia, or worsening pain. He denies any other complaints at this time. Related Data Home Medications Medication Instructions Recorded Confirmed aspirin [Aspir-81] 81 mg PO DAILY 05/26/17 05/18/18 atorvastatin [Lipitor] 40 mg PO QPM 05/26/17 05/18/18 lisinopril 20 mg PO DAILY 05/26/17 05/18/18 cyclobenzaprine 7.5 mg PO TID #21 tab 05/15/18 05/18/18 lidocaine 1 patch TP DAILY #5 each 05/15/18 05/18/18 hydrocodone-acetaminophen 1 tab PO Q6H PRN #10 tab 05/16/18 05/18/18 prednisone 40 mg PO DAILY #6 tab 05/16/18 05/18/18 gabapentin [Neurontin] 300 mg PO TID #90 cap 05/18/18 hydrocodone-acetaminophen [[place]] 1 tab PO Q6H #4 tab 05/18/18 lidocaine [Lidoderm] 1 patch TOPICAL Q24H #4 patch 05/18/18 Previous Rx's Medication Instructions Recorded cyclobenzaprine 7.5 mg PO TID #21 tab 05/15/18 lidocaine 1 patch TP DAILY #5 each 05/15/18 hydrocodone-acetaminophen 1 tab PO Q6H PRN #10 tab 05/16/18 prednisone 40 mg PO DAILY #6 tab 05/16/18 gabapentin [Neurontin] 300 mg PO TID #90 cap 05/18/18 hydrocodone-acetaminophen [[place]] 1 tab PO Q6H #4 tab 05/18/18 lidocaine [Lidoderm] 1 patch TOPICAL Q24H #4 patch 05/18/18 Allergies Allergy/AdvReac Type Severity Reaction Status Date / Time No Known Allergies Allergy Unverified 05/18/18 11:54 General Stated Complaint: Nk/Back Pain KATHIA: 4 Review of Systems Review of Systems All systems reviewed & are unremarkable except as noted in HPI and below PFSH Medical History HTN (hypertension) (Chronic) Hypercholesterolemia (Chronic) Social History Smoking/Tobacco Use Status: Former Tobacco Use Social History Smoking/Tobacco Use Status: Former Tobacco Use Exam Narrative Exam Narrative: 1.Const: Well-nourished, Well-developed, appearing stated age 2.Eyes: PERRL, no conjunctival injection, and symmetrical lids. 3.ENT: Atraumatic external nose and ears. Moist MM. Neck: Symmetric, trachea midline, No thyromegaly. 4.CVS: +S1/S2, No murmurs or gallops. Peripheral pulses 2+ and equal in all extremities. Brisk capillary refill in all extremities. 5.RESP: Unlabored respiratory effort. Clear to auscultation bilaterally. No wheezes rales or rhonchi 6.GI: Soft, Nontender/Nondistended, No hepatosplenomegaly. No guarding or rebound. 7.MSK: Normocephalic/Atraumatic, Extremities w/o deformity or ttp No cyanosis or clubbing, Normal movement of all extremities. No midline tenderness to palpation over the CT spine. Mild midline tenderness over the lumbar spine. No change from previous assessment. Normal ROM in flexion, extension, side bend, and rotation. Patient has +5 out of 5 strength in the lower extremities in dorsiflexion and plantarflexion, knee flexion and extension, hip flexion and extension. There is +2 over 2 dorsalis pedis pulses bilaterally. There is normal sensation to the skin with light touch at the foot, knee, and hip. Normal saddle sensation. Good sensation over the deep sural nerve area bilaterally. Repeat rectal exam demonstrated normal rectal tone and normal perirectal sensation reflexes are +2 over 4 in the patellar reflex bilaterally. +5 out of 5 strength in the medial, ulnar, radial nerve distribution bilaterally in the hands as well as intact light touch sensation to these dermatomes on the hands. No significant changes in exam from previous examination 72 hours prior. 8.Skin: Warm, Dry. No rashes or lesions. 9.Neuro: travel cota II-XII grossly intact. Sensation grossly intact, no focal neurologic deficits. 10.Psych: (AAO) x3. Appropriate mood and affect Course Vital Signs Temperature 37.2 C 05/18/18 11:48 Pulse 74 05/18/18 11:48 Respiratory Rate 16 05/18/18 11:48 Blood Pressure 144/79 H 05/18/18 11:48 Pulse Oximetry 94 L 05/18/18 11:48 Temperature 37.2 C 05/18/18 11:48 Temperature Source Skin 05/18/18 11:48 Pulse 74 05/18/18 11:48 Respiratory Rate 16 05/18/18 11:48 Respiratory Effort 05/18/18 11:53 Blood Pressure 144/79 H 05/18/18 11:48 Blood Pressure Position Sitting 05/18/18 11:48 Pulse Oximetry 94 L 05/18/18 11:48 Oxygen Delivery Method Room Air 05/18/18 11:48 Oxygen Flow Rate 0 05/18/18 11:48 Pain Level 10 05/18/18 11:48 Comment 05/18/18 11:48
--- NOTE | 2018-05-18 13:29 | ED.GENADUL_ITS ---
Discharge Plan Disposition Patient Disposition: HOME Condition: Good Discharge Details Chief Complaint: Nk/Back Pain Clinical Impression: Back pain, Radiculopathy Primary Care Provider: Tin Matthews ED Provider: Jason Hassan Home Meds and New Rx's Prescriptions: New gabapentin [Neurontin] 300 MG capsule 300 mg PO TID Qty: 90 RF: 0 hydrocodone-acetaminophen [[place]] 7.5-325 mg tablet 1 tab PO Q6H Qty: 4 RF: 0 lidocaine [Lidoderm] 1 PATCH patch 1 patch Topical Q24H Qty: 4 RF: 0 No Action atorvastatin [Lipitor] 40 MG tablet 40 mg PO QPM RF: 0 aspirin [Aspir-81] 81 MG tablet,delayed release (DR/EC) 81 mg PO DAILY RF: 0 lisinopril 10 MG tablet 20 mg PO DAILY RF: 0 lidocaine 5 % adhesive patch,medicated 1 patch TP DAILY Qty: 5 RF: 0 cyclobenzaprine 7.5 mg tablet 7.5 mg PO TID Qty: 21 RF: 0 prednisone 20 mg tablet 40 mg PO DAILY Qty: 6 RF: 0 hydrocodone-acetaminophen 10-325 mg tablet 1 tab PO Q6H PRN (Reason: pain) Qty: 10 RF: 0 Discharge Instructions Instructions: Back Pain (ED) Additional Instructions: Please take medication as directed. Please follow-up with your primary care provider at your scheduled appointment tomorrow for referral to the [facility] spine Center. If you notice any worsening of your symptoms, or any new symptoms such as vomiting, numbness or tingling in your groin, anesthesia of your lower extremities, weakness of your lower extremities, bowel or bladder incontinence diarrhea, fever, chills, shortness of breath, chest pain, numbness , weakness, or fainting , please return immediately to the emergency department for reevaluation. Please follow up with your primary care provider as soon as possible for reassessment and reevaluation. As always, it was a pleasure participating in your medical care today. Referrals: Tin Matthews [Primary Care Provider] - Discharge Data Discharge Date/Time-TO BE ENTERED AT DEPARTURE: 05/18/18 13:45 Medical Decision Making This is a very pleasant 62-year-old male who was seen and assessed here 72 hours ago for back pain, CT scan at that time showed a small protrusion in the L3 space versus artifact. He had no red flags for cord compression syndrome at that time. He was started on NSAIDs, Lidoderm patch, he was seen and assessed again the next day, with slight burning over his anterior thighs which was a change but no other acute changes. He continues to demonstrate no red flags. He was started on steroids at that time. Outpatient MRI was scheduled, and he comes in today for evaluation after MRI. He denies any other significant acute changes. MRI results demonstrates compression on the L3 nerve roots, no evidence of central cord compression. No other significant abnormalities. Patient continues to demonstrate a reassuring physical exam with no evidence of severe retention, as he is followed currently retaining roughly 143 mL's. He shows no signs of bowel or bladder incontinence. He continues to demonstrate normal strength, normal sensation, normal reflexes. I did contact Dr. Goldberg and he has no additional emergent recommendations. He does recommend that the patient follow-up on an outpatient basis with the spine center at [facility]. We will start the patient on gabapentin. We have contacted the spine center and set up an outpatient follow-up/referral. We discussed red flags which to return the patient understands. Pain is well controlled at this time. He is requesting a few more [place]'s, I do think this is reasonable, however we did have a 15-minute discussion on the addiction profile for narcotics, as well as the importance of avoiding them as much as possible and only use the main as necessary. He has a follow-up appointment with his primary care provider in the next 48 hours and I recommended he reassess narcotics at that point. His [place] prescription monitoring system demonstrates no other significant recent refills, aside for what was prescribed here. We discussed red flags which to immediately return, having a low threshold for return, and the importance of close follow-up. I have extensively reviewed the treatment plan and discharge instructions with the patient and their family. I have addressed all patient concerns at this time. The patient and family was made aware of what symptoms to monitor for that would warrant a return to the emergency department. Discussed the plan with the patient and family, they demonstrate verbal understanding and agreement with our assessment and plan at this time. HPI General Date/Time Provider Initiated Documentation: 05/18/18 11:59 . HPI Narrative: This is a 62-year-old male presents with 2 weeks of back pain. It occurred while putting on chains for his truck. Since then he has had gradual chronic back pain in his lower lumbar spine with radiation down his legs, worse with movement, improved by NSAIDs. He has no red flags of bowel or bladder incontinence, saddle anesthesia, or weakness of his lower extremities. Patient was initially seen and assessed here in the emergency department by my colleague Dr. Singh 3 days ago, where he was given a Lidoderm patch here, Flexeril, and Tylenol and here in the ED he has had a notable improvement of his symptoms. He demonstrated normal reflexes normal sensation, normal rectal tone, normal perirectal sensation and a post void residual far less than 100. CT scan results demonstrate no acute fracture, and possible disc extrusion at L2/L3 versus artifact. Correlate with MRI if indicated with the patient's clear muscular component, as well as his lack of neurologic red flags, significant urinary retention, decreased rectal tone or sensation, and in the setting of normal reflexes normal sensation normal strength and improvement of his symptoms with NSAIDs and Lidoderm patch, his current clinical symptomatology at that time was clinically consistent with a musculoskeletal component, and clinically inconsistent with cauda equina syndrome requiring immediate surgical intervention. The patient was discharged , with close follow-up with a primary care provider and close MRI follow-up. The patient's symptoms slightly worsened with burning over the anterior component of his thighs, but no other red flags. He had no bowel or bladder incontinence. He had a bladder scan that was performed which demonstrated slightly increased retention compared to before but no other abnormalities. He was discharged home with MRI follow-up. He presents here today for recommendations after MRI. Patient denies any significant change in his symptoms, he denies any new red flags of bowel or bladder incontinence, lower extremity weakness, saddle anesthesia, or worsening pain. He denies any other complaints at this time. Related Data Home Medications Medication Instructions Recorded Confirmed aspirin [Aspir-81] 81 mg PO DAILY 05/26/17 05/18/18 atorvastatin [Lipitor] 40 mg PO QPM 05/26/17 05/18/18 lisinopril 20 mg PO DAILY 05/26/17 05/18/18 cyclobenzaprine 7.5 mg PO TID #21 tab 05/15/18 05/18/18 lidocaine 1 patch TP DAILY #5 each 05/15/18 05/18/18 hydrocodone-acetaminophen 1 tab PO Q6H PRN #10 tab 05/16/18 05/18/18 prednisone 40 mg PO DAILY #6 tab 05/16/18 05/18/18 gabapentin [Neurontin] 300 mg PO TID #90 cap 05/18/18 hydrocodone-acetaminophen [[place]] 1 tab PO Q6H #4 tab 05/18/18 lidocaine [Lidoderm] 1 patch TOPICAL Q24H #4 patch 05/18/18 Previous Rx's Medication Instructions Recorded cyclobenzaprine 7.5 mg PO TID #21 tab 05/15/18 lidocaine 1 patch TP DAILY #5 each 05/15/18 hydrocodone-acetaminophen 1 tab PO Q6H PRN #10 tab 05/16/18 prednisone 40 mg PO DAILY #6 tab 05/16/18 gabapentin [Neurontin] 300 mg PO TID #90 cap 05/18/18 hydrocodone-acetaminophen [[place]] 1 tab PO Q6H #4 tab 05/18/18 lidocaine [Lidoderm] 1 patch TOPICAL Q24H #4 patch 05/18/18 Allergies Allergy/AdvReac Type Severity Reaction Status Date / Time No Known Allergies Allergy Unverified 05/18/18 11:54 General Stated Complaint: Nk/Back Pain KATHIA: 4 Review of Systems Review of Systems All systems reviewed & are unremarkable except as noted in HPI and below PFSH Medical History HTN (hypertension) (Chronic) Hypercholesterolemia (Chronic) Social History Smoking/Tobacco Use Status: Former Tobacco Use Social History Smoking/Tobacco Use Status: Former Tobacco Use Exam Narrative Exam Narrative: 1.Const: Well-nourished, Well-developed, appearing stated age 2.Eyes: PERRL, no conjunctival injection, and symmetrical lids. 3.ENT: Atraumatic external nose and ears. Moist MM. Neck: Symmetric, trachea midline, No thyromegaly. 4.CVS: +S1/S2, No murmurs or gallops. Peripheral pulses 2+ and equal in all extremities. Brisk capillary refill in all extremities. 5.RESP: Unlabored respiratory effort. Clear to auscultation bilaterally. No wheezes rales or rhonchi 6.GI: Soft, Nontender/Nondistended, No hepatosplenomegaly. No guarding or rebound. 7.MSK: Normocephalic/Atraumatic, Extremities w/o deformity or ttp No cyanosis or clubbing, Normal movement of all extremities. No midline tenderness to palpation over the CT spine. Mild midline tenderness over the lumbar spine. No change from previous assessment. Normal ROM in flexion, extension, side bend , and rotation. Patient has +5 out of 5 strength in the lower extremities in dorsiflexion and plantarflexion, knee flexion and extension, hip flexion and extension. There is +2 over 2 dorsalis pedis pulses bilaterally. There is normal sensation to the skin with light touch at the foot, knee, and hip. Normal saddle sensation. Good sensation over the deep sural nerve area bilaterally. Repeat rectal exam demonstrated normal rectal tone and normal perirectal sensation reflexes are +2 over 4 in the patellar reflex bilaterally. +5 out of 5 strength in the medial, ulnar, radial nerve distribution bilaterally in the hands as well as intact light touch sensation to these dermatomes on the hands. No significant changes in exam from previous examination 72 hours prior. 8.Skin: Warm, Dry. No rashes or lesions. 9.Neuro: stone [place] II-XII grossly intact. Sensation grossly intact, no focal neurologic deficits. 10.Psych: (AAO) x3. Appropriate mood and affect Course Vital Signs Temperature 37.2 C 05/18/18 11:48 Pulse 74 05/18/18 11:48 Respiratory Rate 16 05/18/18 11:48 Blood Pressure 144/79 H 05/18/18 11:48 Pulse Oximetry 94 L 05/18/18 11:48 Temperature 37.2 C 05/18/18 11:48 Temperature Source Skin 05/18/18 11:48 Pulse 74 05/18/18 11:48 Respiratory Rate 16 05/18/18 11:48 Respiratory Effort 05/18/18 11:53 Blood Pressure 144/79 H 05/18/18 11:48 Blood Pressure Position Sitting 05/18/18 11:48 Pulse Oximetry 94 L 05/18/18 11:48 Oxygen Delivery Method Room Air 05/18/18 11:48 Oxygen Flow Rate 0 05/18/18 11:48 Pain Level 10 05/18/18 11:48 Comment 05/18/18 11:48
[2018-05-18 13:51] VITALS: BP 144/79; PULSE 74; RESP 16; TEMP 37.2; O2SAT 94
== END 2018-05-18 13:45 | disposition home or self-care (01) ==
PROVIDERS: Emergency Provider Student in an Organized Health Care Education/Training Program; PCP Specialist/Technologist Athletic Trainer
DX: M54.16 Radiculopathy, lumbar region (principal); R93.7 Abnormal findings on diagnostic imaging of other parts of musculoskeletal system; I10 Essential (primary) hypertension
CPT/HCPCS: 99283; 99281

== ENCOUNTER 2018-05-20 01:37 | Outpatient (CLI) | payer OTHER, SELFPAY ==
--- NOTE | 2018-05-20 09:11 | DI.RAD_ITS ---
SYMPTOM/DIAGNOSIS: LOW BACK PAIN M54.5 LUMBAR SPINE: Comparison is made with CT lumbar spine dated 15 May 2018, and MRI lumbar spine dated 18 May 2018 Large disc herniation is demonstrated at L2-3 on the lumbar spine MRI. The vertebral bodies are well maintained in height. There is severe narrowing of the L5-S1 disc space. There are moderate end plate osteophytes at this level. No spondylolysis, spondylolisthesis or scoliosis seen. IMPRESSION: Degenerative disc changes at L5-S1.
== END 2018-05-20 01:57 ==
PROVIDERS: PCP Specialist/Technologist Athletic Trainer; Visit Provider Specialist/Technologist Athletic Trainer
DX: M54.5 Low back pain (principal); M51.37 Other intervertebral disc degeneration, lumbosacral region
CPT/HCPCS: 72110

== ENCOUNTER 2019-05-02 07:07 | Day surgery (SDC) | payer OTHER, SELFPAY ==
--- NOTE | 2019-05-02 06:38 | W.COLOREPORT ---
Date of service: 05/02/19 Time of Service: 08: Colonoscopy Report Date of procedure: 05/02/19 Pre-op diagnosis general: Colon Cancer Screening Post-op diagnosis procedure note: other (Colon Polyp) Procedure: Colonoscopy with polypectomy Surgeon: Anna Marie Vides Anesthesia proc note operative: other (General/ ASA 2/Cindy Winston CRNA) Estimated blood loss (mL): 3 Pathology: other (Transverse polyp) Complications: None Disposition: same day Indications: Mr. Good is a pleasant 63 year old male seen in the office for a screening colonoscopy. He had a colonoscopy about 9 years ago which was incomplete due to poor prep. Risks, benefits and complications have been reviewed. Complications include but are not limited to bleeding, pain, perforation, missed small lesion/polyp, sore throat, aspiration and adverse reaction to the medications. Questions were entertained and answered to their satisfaction and they wished to proceed. No guarantees were given or implied. Prep: Miralax/Dulcolax Procedure Start Time: : Procedure End Time: 08:46 Retraction Time: 16 minutes Findings: One small pedunculated polyp Procedure Description: After informed consent was obtained the patient was taken to the procedure room and placed in a left decubitous position. Monitors were applied and a time out was done. The patients name, date of , procedure, allergies to medications and metal in their body was reviewed. The patient was then sedated. Once sedated and comfortable a rectal exam was done. External exam was normal. Internal exam revealed a normal sphincter tone and no palpable masses. The prostate felt smooth and slightly enlarged. The scope was then introduced and retro-flexed. Grade 1 internal hemorrhoids were identified. There were no polyps or masses on retro-flexion. The scope was then advanced to the cecum without difficulty. The TI and appendiceal orifice were identified. The prep was adequate. The scope was then slowly retracted over 16 minutes back into the rectum. Polyps were removed in the transverse colon with cold forceps. There were no diverticula noted. The scope was removed and the patient was woken up and taken back to Same day surgery in stable condition. The patient tolerated the procedure well and there were no immediate complications. Follow up: The patient should follow up in 3-5 years unless they develop changes in bowel habits or other new gastrointestinal complaints.
--- NOTE | 2019-05-02 06:39 | W.PM.DSUDISC ---
Discharge Plan Disposition Patient Disposition: HOME Condition: Good Discharge Details Reason For Visit: Colon CAncer Screening Attending Provider: Anna Marie Vides Primary Care Provider: Tin Matthews Home Meds and New Rx's Prescriptions: Continued atorvastatin [Lipitor] 40 MG tablet 40 mg PO QPM RF: 0 aspirin [Aspir-81] 81 MG tablet,delayed release (DR/EC) 81 mg PO DAILY RF: 0 lisinopril 10 MG tablet 20 mg PO DAILY RF: 0 Discharge Instructions Instructions: Colonoscopy (DC), Colorectal Polyps (DC) Additional Instructions: Findings: One small polyp Follow up: 3-5 years Please call if you develop: fevers >101.5 Nausea or Vomiting Abdominal pain that is not transient DAY SURGERY UNIT POST ENDOSCOPY INSTRUCTIONS 1. Because there will be medication in your system for the next 24 hours, you may feel a little sleepy. Your coordination will be affected. Therefore: a. Do not drive or operate dangerous equipment for 24 hours. b. Do not drink alcohol beverages for 24 hours (not even beer). c. Plan to go home and rest for the day. 2. Generally there are no restrictions on your activity after a day or so has gone by, but you may feel a bit fatigued for a few days. 3 After you arrive home you may have a light meal and return to a normal diet as you can tolerate it without feeling sick to your stomach. 4. After surgery, you may feel pain or discomfort. This should be only transient, but if it persists please contact your doctor. 5. If there are any questions regarding the findings of your procedure, please feel free to contact your doctor. 6. If you are unable to contact your doctor with a problem, contact the hospital at [phone]. 7. Continue all your regular medications unless directed otherwise. I understand the above instructions and have no questions. Signature of Patient or Responsible Adult Escort Date/Time Name of Responsible Adult Escort Signature of Nurse Date/Time Activity:: Activity as Tolerated Diet:: As Tolerated Discharge Orders Discharge Orders: Discharge Order (Routine); Ordered 05/02/19 Ordered By: Anna Marie Vides DS: Diagnosis Discharge Diagnosis (1) S/P colonoscopy: Status: Acute (2) Colorectal polyp detected on colonoscopy: Status: Acute
[2019-05-02 07:21] VITALS: BP 134/79; PULSE 78; RESP 17; TEMP 36.6; O2SAT 98
[2019-05-02] MEDS: Lactated Ringers 1,000 ML 80 ML IV (08:18)
--- NOTE | 2019-05-02 08:40 | BOWEL_PTH ---
PATIENT: Richar Good LOC: [facility] U#:[id number] AGE/SX: 63/M ROOM: RE05/02/[address]: Anna Marie Vides MD : [id number] BED: DIS: 05/02/2019 SPEC #: [id number] RECD: 05/02/19 11:31 STATUS: CLARE REQ #: [id number] MIKAELA: 05/02/19 08:[address]: Anna Marie Vides DEPT: Surgical Specimen RECD BY: Bria Haji ENTERED: 05/02/19 11:31 SP TYPE: Bowel OTHR DR: Tin Matthews Tissues: 1 - BIOPSY BOWEL Procedures: GROSS AND MICRO LEVEL 4 Comments: [id number]
[2019-05-02 09:25] VITALS: BP 147/89; PULSE 66; RESP 16; TEMP 36.3; O2SAT 98
== END 2019-05-02 09:47 | disposition home or self-care (01) ==
LOC: SUR 07:08
PROVIDERS: PCP Specialist/Technologist Athletic Trainer; Visit Provider Surgery
PROC: 0DJD8ZZ Inspection of Lower Intestinal Tract, Via Natural or Artificial Opening Endoscopic (ICD-10-PCS; CPT 45378; principal; 2019-05-02 08:15)
DX: Z12.11 Encounter for screening for malignant neoplasm of colon (principal); D12.3 Benign neoplasm of transverse colon; K64.0 First degree hemorrhoids
CPT/HCPCS: 45380; 88305

== ENCOUNTER 2020-03-06 01:54 | Outpatient (CLI) | payer OTHER, SELFPAY ==
[2020-03-06 08:40] LABS: HCT 42.5 % (40.0-50.0); HGB 14.1 g/dL (13.5-17.5); MCH 32.2 pg (27.0-33.0); MCHC 33.2 % (32.0-36.0); MPV 9.3 fL (8.0-11.0); Platelet Count 336 10^3/uL (130-400); RBC 4.38 10^6/uL (4.36-5.78); RDW 12.6 % (11.8-14.1); RDW-SD 45.3 fL; WBC 8.65 10^3/uL (4.4-10.8)
[2020-03-06 10:01] LABS: ALT 30 U/L (16-63); AST 18 U/L (15-37); Albumin 4.1 g/dL (3.4-5.0); Alkaline Phosphatase 112 U/L (46-116); Anion Gap 6.6 mmol/L (3-11); BUN 24 mg/dL (7-18); Bilirubin, Total 0.6 mg/dL (0.2-1.0); CO2 30.4 mmol/L (21.0-32.0); CREATININE 1.11 mg/dL (0.70-1.30); Calcium 9.3 mg/dL (8.5-10.1); Calculated LDL 128 mg/dL (<100); Chloride 102 mmol/L (98-107); Cholesterol 264 mg/dL (<200); Glucose 99 mg/dL (74-106); HDL Cholesterol 119 mg/dL (40-60); Potassium 4.6 mmol/L (3.5-5.1); Sodium 139 mmol/L (136-145); Total Protein 7.3 g/dL (6.4-8.2); Triglyceride 89 mg/dL (<150)
== END 2020-03-06 02:14 ==
PROVIDERS: PCP Family Medicine; Visit Provider Family Medicine
DX: Z00.00 Encounter for general adult medical examination without abnormal findings (principal); E78.5 Hyperlipidemia, unspecified; I10 Essential (primary) hypertension
CPT/HCPCS: 36415; 80053; 80061; 85027

== ENCOUNTER 2021-03-11 15:02 | Outpatient (REF) | payer MEDICARE, SELFPAY ==
[2021-03-11 21:41] LABS: ALT 47 U/L (16-63); AST 23 U/L (15-37); Albumin 4.1 g/dL (3.4-5.0); Alkaline Phosphatase 163 U/L (46-116); Anion Gap 8.7 mmol/L (3-11); BUN 28 mg/dL (7-18); Bilirubin, Total 0.4 mg/dL (0.2-1.0); CO2 28.3 mmol/L (21.0-32.0); CREATININE 1.3 mg/dL (0.70-1.30); Calcium 9.2 mg/dL (8.5-10.1); Calculated LDL 128 mg/dL (<100); Chloride 103 mmol/L (98-107); Cholesterol 239 mg/dL (<200); Estimated GFR 55.23 (mL/min/1.73m2); Glucose 97 mg/dL (74-106); HDL Cholesterol 83 mg/dL (40-60); Sodium 140 mmol/L (136-145); Total Protein 7.7 g/dL (6.4-8.2); Triglyceride 144 mg/dL (<150)
== END 2021-03-11 15:03 | disposition home or self-care (01) ==
LOC: NCHCN 15:02
PROVIDERS: PCP Family Medicine; Visit Provider Family Medicine
DX: E78.5 Hyperlipidemia, unspecified (principal); I10 Essential (primary) hypertension; Z00.00 Encounter for general adult medical examination without abnormal findings
CPT/HCPCS: 80053; 80061